=== PATIENT | female | born 1940 | race Caucasian/White ===

== ENCOUNTER → 2016-09-13 | Outpatient (CLI) | payer OTHER ==
--- NOTE | 2016-09-13 12:42 | PCVCIMAG ---
EXAM: BILATERAL SUPERFICIAL VENOUS DUPLEX INDICATION: Leg pain and swelling. FINDINGS: Right leg: No thrombus in the common femoral, main femoral, or popliteal veins. These veins are compressible. Right Great Saphenous Vein: At the saphenofemoral junction the diameter is 6.3 mm, in the mid thigh it is 3.7 mm, and in the calf it is 4.7 mm. There is significant venous insufficiency/reflux in the calf only. Venous insufficiency/reflux duration is 9.4 seconds. Right Small Saphenous Vein: At the saphenopopliteal junction the diameter is 4.9 mm, and in the calf it is 2.3 mm. There is not significant venous insufficiency/reflux throughout. Venous insufficiency/reflux duration is 0 seconds. There is not a cranial extension present. Left leg: No thrombus in the common femoral, main femoral, or popliteal veins. These veins are compressible. Left Great Saphenous Vein: At the saphenofemoral junction the diameter is 6.7 mm, in the mid thigh it is 4.5 mm, and in the calf it is 2.6 mm. There is significant venous insufficiency/reflux throughout. Venous insufficiency/reflux duration is 7.6 seconds. Left Small Saphenous Vein: At the saphenopopliteal junction the diameter is 4.8 mm, and in the calf it is 4.0 mm. There is not significant venous insufficiency/reflux throughout. Venous insufficiency/reflux duration is 0 seconds. There is not a cranial extension present. IMPRESSION: Right Great Saphenous Vein: Significant venous insufficiency/reflux is present as noted above. Right Small Saphenous Vein: No significant venous insufficiency/reflux is present as noted above. Left Great Saphenous Vein: Significant venous insufficiency/reflux is present as noted above. Left Small Saphenous Vein: No significant venous insufficiency/reflux is present as noted above. Note is made the right and left great saphenous veins are somewhat small in size and because of this would not meet Medicare criteria for endovenous laser ablation. Conservative measures with compression stockings and intermittent leg elevation may be helpful to control symptoms as needed. LOC:[id number]
== END | disposition home or self-care (01) ==
LOC: PCVCIMAG 11:30
PROVIDERS: ATTEND Nuclear Medicine Nuclear Cardiology
DX: I87.2 Venous insufficiency (chronic) (peripheral) (principal)
CPT/HCPCS: 93970